=== PATIENT | female | born 1935 | race African-American/Black ===

== ENCOUNTER 2017-09-22 12:39 | Emergency (ER) | payer MEDICARE, MEDICAID ==
[~2017-09-22] VITALS: Ht 160 cm; Wt 74.4 kg
[~2017-09-22 12:39] MED LIST: ACETTAB85; NITROLINGUAL SPRAY; VALS160T43
[2017-09-22 12:55] VITALS: BP 155/105
== END 2017-09-22 14:17 | disposition home or self-care (01) ==
LOC: EDUNIT# 12:39 → ER 12:39
DX: M26.603 Bilateral temporomandibular joint disorder, unspecified (principal); K02.9 Dental caries, unspecified; I10 Essential (primary) hypertension; Z88.6 Allergy status to analgesic agent